=== PATIENT | female | born 1990 | race Caucasian/White ===

== ENCOUNTER 2016-12-13 10:56 | Emergency (ER) | payer MEDICAID, OTHER ==
[2016-12-13 11:01] VITALS: O2SAT 100
[2016-12-13 12:00] LABS: BASO % 0.7 % (0.0-2.0); EOS # 0.2 K/uL (0.0-0.7); EOS % 2.5 % (0.0-4.0); HEMATOCRIT 38.3 % (34.0-47.0); LYMPH # 2.1 K/uL (1.0-4.3); LYMPH % 34.8 % (20.0-40.0); MEAN CELL VOLUME 89.4 fL (81.0-99.0); MEAN CORPUSCULAR HEMOGLOBIN 30.6 pg (27.0-31.0); MEAN CORPUSCULAR HGB CONC 34.2 g/dL (33.0-37.0); MEAN PLATELET VOLUME 8.2 fL (7.2-11.7); MONO # 0.3 K/uL (0.0-0.8); MONO % 5.7 % (0.0-10.0); RED CELL DISTRIBUTION WIDTH 12.9 % (11.5-14.5); WHITE BLOOD COUNT 6.1 K/uL (4.8-10.8)
[2016-12-13 12:05] LABS: RBC URINE 13 /hpf (0-3); URINE BACTERIA OCC (<OCC); URINE BILIRUBIN NEGATIVE (NEGATIVE); URINE BLOOD 2+ (NEGATIVE); URINE COLOR Yellow (YELLOW); URINE GLUCOSE (UA) NORMAL (Normal); URINE KETONE NEGATIVE (NEGATIVE); URINE LEUKOCYTE ESTERASE TRACE Leu/uL (Negative); URINE PROTEIN NEGATIVE (NEGATIVE); URINE UROBILINOGEN NORMAL mg/dL (0.2-1.0); WBC URINE 10 /hpf (0-5)
[2016-12-13 12:06] LABS: CHLORIDE 101 mmol/L (98-107); POTASSIUM 3.5 mmol/L (3.6-5.2); SODIUM 136 mmol/L (132-148)
[2016-12-13 12:09] LABS: ALKALINE PHOSPHATASE 40 U/L (38-126); ALT/SGPT 29 U/L (9-52); AST/SGOT 18 U/L (14-36); BILIRUBIN,TOTAL 0.5 mg/dL (0.2-1.3); BLOOD UREA NITROGEN 7 mg/dL (7-17); CALCIUM 9.6 mg/dl (8.6-10.4); CARBON DIOXIDE 24 mmol/L (22-30); GFR AFRICAN-AMERICAN > 60; GLUCOSE,RANDOM 79 mg/dL (65-105); TOTAL PROTEIN 9.4 g/dL (6.3-8.3)
--- NOTE | 2016-12-13 13:47 | US ---
HISTORY: vag bleed in , assess cervix COMPARISON: None available. TECHNIQUE: Transabdominal and endovaginal ultrasound examination of the pelvis. FINDINGS: UTERUS: Measures 7.9 x 5 x 6.75 cm. Normal in size and appearance. No fibroid or other mass lesion seen. ENDOMETRIUM: Measures 23.9 mm in diameter. Unremarkable. CERVIX: No cervical abnormality identified. RIGHT OVARY: Measures 3.1 x 1.8 x 2.8 cm. No solid mass. Normal flow. LEFT OVARY: Measures 5.2 x 3.6 x 3.8 cm. No solid mass. Normal flow. There is a simple cyst seen at the left ovary measures 3.4 x 2.6 x 3.2 centimeter. FREE FLUID: No significant free fluid noted. OTHER FINDINGS: None. IMPRESSION: Thick slightly heterogeneous endometrium measures up to 2.4 centimeter. Simple cyst noted at the left ovary measures 3.4 centimeter. No ultrasound evidence of ovarian torsion. No evidence of intrauterine . Correlation with the beta HCG level and close follow-up reassessment is recommended.
--- NOTE | 2016-12-13 13:53 | C.PDOC ---
History Of Present Illness 26 y/o F c no PMHx p/w vaginal bleeding in this morning. Describes as red/brown blood, perhaps more than spotting. Positive home test 5 days ago. Denies fever, chills, syncope, vomiting, pain. Treated with macrobid for UTI 1 week ago, just finished antibiotics. Time Seen by Provider: 12/13/16 11:07 Chief Complaint (Nursing): Female Genitourinary Past Medical History Vital Signs: Last Vital Signs Temp 97.5 F L 12/13/16 10:58 Pulse 83 12/13/16 10:58 Resp 20 12/13/16 10:58 BP 119/77 12/13/16 10:58 Pulse Ox 100 12/13/16 14:02 Family History: States: No Known Family Hx - Social History Hx Alcohol Use: No Hx Substance Use: No - Immunization History Hx Tetanus Toxoid Vaccination: No Hx Influenza Vaccination: No Hx Pneumococcal Vaccination: No Review Of Systems Except As Marked, All Systems Reviewed And Found Negative. Constitutional: Negative for: Fever Gastrointestinal: Negative for: Vomiting Physical Exam - Physical Exam Additional Physical Exam Comments: Gen: No acute distress. Head: NC ENT: MMM. Neck: Supple. Card: Regular rate. Lungs: CTA b/l. Abdomen: Soft, nontender, nondistended. Extremities: No tenderness or swelling. Neuro: Alert Gait: Steady ED Course And Treatment - Laboratory Results Result Diagrams: 12/13/16 11:49 12/13/16 11:49 O2 Sat by Pulse Oximetry: 100 Medical Decision Making Medical Decision Making: HISTORY: vag bleed in , assess cervix COMPARISON: None available. TECHNIQUE: Transabdominal and endovaginal ultrasound examination of the pelvis. FINDINGS: UTERUS: Measures 7.9 x 5 x 6.75 cm. Normal in size and appearance. No fibroid or other mass lesion seen. ENDOMETRIUM: Measures 23.9 mm in diameter. Unremarkable. CERVIX: No cervical abnormality identified. RIGHT OVARY: Measures 3.1 x 1.8 x 2.8 cm. No solid mass. Normal flow. LEFT OVARY: Measures 5.2 x 3.6 x 3.8 cm. No solid mass. Normal flow. There is a simple cyst seen at the left ovary measures 3.4 x 2.6 x 3.2 centimeter. FREE FLUID: No significant free fluid noted. OTHER FINDINGS: None. IMPRESSION: Thick slightly heterogeneous endometrium measures up to 2.4 centimeter. Simple cyst noted at the left ovary measures 3.4 centimeter. No ultrasound evidence of ovarian torsion. No evidence of intrauterine . Correlation with the beta HCG level and close follow-up reassessment is recommended. RH positive. Urine culture sent. Instructed to have beta repeated in 48 hours. Disposition - Disposition Referrals: [facility] [Outside] [facility] [Outside] [facility] [Outside] Disposition: HOME/ ROUTINE Disposition Time: 13:59 Condition: STABLE Additional Instructions: Return to the Emergency Department in 2 days to have your hormone level repeated. Also make an appointment with the OBGYN. A urine culture was sent for you. If it shows an infection, you will be called to be given antibiotics. Instructions: First Trimester Vaginal Bleed (ED) Forms: Amie Sprague (Amharic) - Clinical Impression Clinical Impression: Vaginal bleeding before 22 weeks gestation
[2016-12-13 14:32] VITALS: BP 100/66; PULSE 92; RESP 18; TEMP 98.1
== END 2016-12-13 14:32 | disposition home or self-care (01) ==
LOC: C.ER 10:56
DX: O46.90 Antepartum hemorrhage, unspecified, unspecified trimester (principal)

== ENCOUNTER 2016-12-15 10:40 | Emergency (ER) | payer OTHER, MEDICAID ==
--- NOTE | 2016-12-15 11:06 | C.PDOC ---
History Of Present Illness 26 y/o F c no PMHx presents for repeat beta hcg. Patient had vaginal bleeding in 2 days ago. Describes as red/brown blood, perhaps more than spotting. Positive home test 7 days ago. Denies fever, chills, syncope , vomiting, pain. Treated with macrobid for UTI 1 week ago, just finished antibiotics. On last visit, beta positive, no IUP on US. Now, patient denies any pain, bleeding, or any symptoms. Time Seen by Provider: 12/15/16 10:50 Chief Complaint (Nursing): Medical Clearance Past Medical History Vital Signs: Last Vital Signs Temp 98.7 F 12/15/16 10:54 Pulse 74 12/15/16 10:54 Resp 18 12/15/16 10:54 BP 107/67 12/15/16 10:54 Pulse Ox 100 12/15/16 11:07 Family History: States: No Known Family Hx - Social History Hx Alcohol Use: No Hx Substance Use: No - Immunization History Hx Tetanus Toxoid Vaccination: No Hx Influenza Vaccination: No Hx Pneumococcal Vaccination: No Review Of Systems Except As Marked, All Systems Reviewed And Found Negative. Constitutional: Negative for: Fever Respiratory: Negative for: Shortness of Breath Physical Exam - Physical Exam Additional Physical Exam Comments: Constitutional: No acute distress. Head: Normocephalic. Atraumatic. Eyes: PERRL. ENT: Moist mucous membranes. Neck: Supple. Cardiovascular: Regular rate. Radial pulse 2+ bilaterally. Chest: No tenderness. Respiratory: Clear to auscultation bilaterally. GI: Soft. Nontender. Non distended. Back: No CVA tenderness. Musculoskeletal: No tenderness or swelling of extremities. Skin: No rash. Neurologic: Alert, no focal deficit. ED Course And Treatment O2 Sat by Pulse Oximetry: 100 Medical Decision Making Medical Decision Making: Repeat hcg. Urine culture from last visit shows multiple species and repeat culture is recommended. Repeat UA negative. Culture sent. HCG appropriately elevated. Patient will follow up with OBGYN for care and repeat US/blood work. Instructed to return to ED immediately for worsening pain, bleeding, vomiting, or any other problem. Disposition - Disposition Disposition: HOME/ ROUTINE Disposition Time: 12:58 Condition: STABLE Instructions: (ED) Forms: [email or web address] (Danish) - Clinical Impression Clinical Impression: Vaginal bleeding before 22 weeks gestation
[2016-12-15 11:22] VITALS: PULSE 74; RESP 18; O2SAT 100; BMI 21.9
[2016-12-15 12:46] LABS: URINE BILIRUBIN NEGATIVE (NEGATIVE); URINE COLOR Colorless (YELLOW); URINE GLUCOSE (UA) NORMAL (Normal); URINE KETONE NEGATIVE (NEGATIVE); URINE LEUKOCYTE ESTERASE NEG Leu/uL (Negative); URINE PROTEIN NEGATIVE (NEGATIVE); URINE UROBILINOGEN NORMAL mg/dL (0.2-1.0); WBC URINE 1 /hpf (0-5)
[2016-12-15 12:56] LABS: RBC URINE 1 /hpf (0-3)
[2016-12-15 12:57] LABS: URINE BLOOD TRACE (NEGATIVE)
[2016-12-15 13:22] VITALS: BP 101/63; TEMP 97.8
== END 2016-12-15 13:15 | disposition home or self-care (01) ==
LOC: C.ER 10:40
DX: O46.91 Antepartum hemorrhage, unspecified, first trimester (principal)

== ENCOUNTER 2017-01-14 10:37 | Emergency (ER) | payer OTHER ==
[2017-01-14 10:37] VITALS: BMI 21.9
--- NOTE | 2017-01-14 11:52 | C.PDOC ---
Time Seen by Provider: 01/14/17 10:58 Chief Complaint (Nursing): Female Genitourinary History Per: Patient History/Exam Limitations: no limitations Onset/Duration Of Symptoms: Intermittent Episodes (since 12/13/2016), Worse Since (this morning) Current Symptoms Are (Timing): Still Present Associated Symptoms: denies: Fever, Chills, Nausea, Vomiting, Diarrhea Recent travel outside of the [place]: No Abnormal Vaginal Bleeding: Yes Past Medical History Vital Signs: Last Vital Signs Temp 98.7 F 01/14/17 11:17 Pulse 74 01/14/17 11:17 Resp 20 01/14/17 11:17 BP 103/69 01/14/17 11:17 Pulse Ox 99 01/14/17 11:53 - Social History Hx Alcohol Use: No Hx Substance Use: No - Immunization History Hx Tetanus Toxoid Vaccination: No Hx Influenza Vaccination: No Hx Pneumococcal Vaccination: No ED Course And Treatment O2 Sat by Pulse Oximetry: 99 Disposition - Disposition Forms: [employer] (East Timorese)
--- NOTE | 2017-01-14 11:58 | C.PDOC ---
History Of Present Illness 26 year old female presents to the ED with complaints of vaginal bleeding described as spotting beginning just prior to arrival. Patient has had multiple visits ot ED since 12/13/2016 for vaginal bleeding during . Patient's last visit was 12/30/2016 and had a beta quant of 8545. An ultrasound performed on that date also showed a likely threatened . Patient followed up with OB and was also told she had an abnormal US. Previous chart reveals patient's blood type is A+ with negative antibodies. Patient denies abdominal pain, nausea , vomiting, fever, chills, or other complaints a this time. Time Seen by Provider: 01/14/17 10:58 Chief Complaint (Nursing): Female Genitourinary History Per: Patient History/Exam Limitations: no limitations Onset/Duration Of Symptoms: Intermittent Episodes (12/13/2016), Worse Since ([employer] ) Current Symptoms Are (Timing): Still Present Associated Symptoms: denies: Fever, Chills, Nausea, Vomiting, Diarrhea, Urinary Symptoms Alleviating Factors: None Recent travel outside of the [place]: No Additional History Per: Prior Records Abnormal Vaginal Bleeding: Yes Past Medical History Reviewed: Historical Data, Nursing Documentation, Vital Signs Vital Signs: Last Vital Signs Temp 98.2 F 01/14/17 14:11 Pulse 89 01/14/17 14:11 Resp 18 01/14/17 14:11 BP 106/67 01/14/17 14:11 Pulse Ox 98 01/14/17 14:11 Family History: States: Unknown Family Hx - Social History Hx Alcohol Use: No Hx Substance Use: No - Immunization History Hx Tetanus Toxoid Vaccination: No Hx Influenza Vaccination: No Hx Pneumococcal Vaccination: No Review Of Systems Constitutional: Negative for: Fever, Chills Cardiovascular: Negative for: Chest Pain, Palpitations Respiratory: Negative for: Cough, Shortness of Breath Gastrointestinal: Negative for: Nausea, Vomiting, Abdominal Pain, Diarrhea Genitourinary: Positive for: Vaginal Bleeding. Negative for: Dysuria, Vaginal Discharge Musculoskeletal: Negative for: Back Pain Physical Exam - Physical Exam Appears: Well, Non-toxic, No Acute Distress Skin: Warm, Dry, No Rash Head: Atraumatic, Normacephalic, No Tenderness Eye(s): bilateral: Normal Inspection, PERRL, EOMI Oral Mucosa: Moist Neck: Supple Chest: Symmetrical, No Deformity Cardiovascular: Rhythm Regular, No Murmur Respiratory: No Rales, No Rhonchi, No Wheezing, Other (clear to auscultation bilaterally ) Gastrointestinal/Abdominal: Soft, No Tenderness, No Distention, No Guarding, No Rebound Back: No CVA Tenderness Extremity: Normal ROM, No Tenderness Neurological/Psych: Oriented x3 ED Course And Treatment O2 Sat by Pulse Oximetry: 99 (RA) Pulse Ox Interpretation: Normal - CT Scan/US Transvaginal US Other Rad Studies (CT/US): Read By Radiologist, Radiology Report Reviewed CT/US Interpretation: FINDINGS: UTERUS: There is an intrauterine gestational sac identified with surrounding decidual reaction. The sac is mildly deformed. The mean sac diameter is 7 mm, out of range for age determination. No pole or yolk sac is evident. There is no subchorionic hemorrhage. There is no detectable cardiac activity. . Uterus measures 8.0 x 5.3 x 6.2 cm. No mass. CERVIX: Long and closed. No cervical abnormality seen. RIGHT OVARY: Measures 3.6 x 2.3 x 3.1 cm. No mass. Normal flow. LEFT OVARY: Measures 3.7 x 2.3 x 3.2 cm. No mass. Normal flow. 1.6 cm simple cyst, presumed physiologic. FREE FLUID: None. OTHER FINDINGS: None. IMPRESSION: Small irregular intrauterine gestational sac without pole or yolk sac. No subchorionic hemorrhage. Sac diameter is out of range for age determination. Followup with serial beta HCG and transvaginal ultrasound is advised. Progress Note: Transvaginal US, beta quant, UA, and urine culture were ordered. Medical Decision Making Medical Decision Making: Bhcg has increased since last visit. Had detailed conversation with patient about persistent abnormal ultrasounds with increasing bhcg. She was made aware of the importance of following up with vp patient tanna. She reports that she has follow-up next Saturday but reports that she will follow-up earlier. Disposition - Disposition Disposition: HOME/ ROUTINE Disposition Time: 14:01 Condition: GOOD Additional Instructions: Follow-up with your lot attendant within 2 days. Return to ED if condition worsens. Instructions: Threatened Miscarriage (ED) Forms: [employer] (Moldovan) - Clinical Impression Clinical Impression: Threatened - Scribe Statement The provider has reviewed the documentation as recorded by the Scribe Sierra Burciaga All medical record entries made by the Scribe were at my direction and personally dictated by me. I have reviewed the chart and agree that the record accurately reflects my personal performance of the history, physical exam, medical decision making, and the department course for this patient. I have also personally directed, reviewed, and agree with the discharge instructions and disposition.
[2017-01-14 13:29] LABS: URINE BILIRUBIN NEGATIVE (NEGATIVE); URINE BLOOD 2+ (NEGATIVE); URINE COLOR Yellow (YELLOW); URINE GLUCOSE (UA) NORMAL (Normal); URINE KETONE NEGATIVE (NEGATIVE); URINE LEUKOCYTE ESTERASE NEG Leu/uL (Negative); URINE PROTEIN NEGATIVE (NEGATIVE); URINE UROBILINOGEN NORMAL mg/dL (0.2-1.0); WBC URINE 1 /hpf (0-5)
--- NOTE | 2017-01-14 13:36 | US ---
PROCEDURE: OB Pelvic Ultrasound HISTORY: , vaginal bleeding COMPARISON: None available. FINDINGS: UTERUS: There is an intrauterine gestational sac identified with surrounding decidual reaction. The sac is mildly deformed. The mean sac diameter is 7 mm, out of range for age determination. No pole or yolk sac is evident. There is no subchorionic hemorrhage. There is no detectable cardiac activity. . Uterus measures 8.0 x 5.3 x 6.2 cm. No mass CERVIX: Long and closed. No cervical abnormality seen. RIGHT OVARY: Measures 3.6 x 2.3 x 3.1 cm. No mass. Normal flow. LEFT OVARY: Measures 3.7 x 2.3 x 3.2 cm. No mass. Normal flow. 1.6 cm simple cyst, presumed physiologic. FREE FLUID: None. OTHER FINDINGS: None. IMPRESSION: Small irregular intrauterine gestational sac without pole or yolk sac. No subchorionic hemorrhage. Sac diameter is out of range for age determination. Followup with serial beta HCG and transvaginal ultrasound is advised.
[2017-01-14 13:42] LABS: RBC URINE 3 /hpf (0-3)
[2017-01-14 14:12] VITALS: BP 106/67; PULSE 89; RESP 18; TEMP 98.2
[2017-01-14 16:46] VITALS: O2SAT 99
== END 2017-01-14 14:11 | disposition home or self-care (01) ==
LOC: C.ER 10:37
DX: O20.0 Threatened abortion (principal); Z3A.00 Weeks of gestation of pregnancy not specified